=== PATIENT | male | born 1945 | race Caucasian/White ===

== ENCOUNTER 2022-06-29 10:23 | Inpatient (IN) | payer OTHER, SELFPAY ==
[2022-06-29] VITALS (42 sets, daily range): BP systolic 109–167; BP diastolic 52–88; PULSE 70–140; RESP 13–30; TEMP 36.4–36.7; O2SAT 88–100; BMI 27.3
--- NOTE | ~2022-06-29 | XR_ITS ---
XR chest 1V portable 06/30/2022 06:04 Indication: Chest tube. Pneumothorax. Procedure: AP portable chest Comparison: 06/29/2022 Findings: Right-sided chest tube stable. No definite residual pneumothorax, although the right lung a pex is obscured by overlying soft tissue. There is diffuse bilateral airspace disease, consistent wit h edema. Small pleural effusions. Status post median sternotomy for CABG. Impression: 1: Cardiomegaly with progression of pulmonary edema. 2: No pneumothorax identified. Staple position of right chest tube. Reviewed, dictated and finalized at location A. ITY ASSURANCE SPECIALIST Impression: 1: Cardiomegaly with progression of pulmonary edema. 2: No pneumothorax identified. Staple position of right chest tube.
--- NOTE | ~2022-06-29 | XR_ITS ---
XR chest 1V portable 06/30/2022 11:11 Indication: Shortness of breath. Dyspnea. Procedure: AP portable chest Comparison: 06/30/2022 and 06/29/2022 Findings: Extensive bilateral perihilar and basilar airspace consolidation. Small pleural effusions. Status post median sternotomy for CABG. No pneumothorax. Impression: 1: Arterial megaly with persistent pulmonary edema. 2: Small pleural effusions. Reviewed, dictated and finalized at location A. IOLOGY FELLOW Impression: 1: Arterial megaly with persistent pulmonary edema. 2: Small pleural effusions.
--- NOTE | ~2022-06-29 | XR_ITS ---
XR chest 1V portable 06/29/2022 10:49 Indication: Shortness of breath. Procedure: AP portable chest Comparison: No prior studies for comparison. Findings: Status post median sternotomy for CABG. Cardiomegaly. Mild interstitial edema. There is a m oderate-large right pneumothorax. No mediastinal shift. No acute osseous abnormality. Impression: 1: Moderate-large sized right pneumothorax with collapse of the right lung. 2: Cardiomegaly with mild interstitial edema. Dr. Temo Oden discussed with Dr. Sajan Romero MD at 06/29/2022 10:51 AVIATION SAFETY OFFICER. Reviewed, dictated and finalized at location A. TION SAFETY OFFICER Impression: 1: Moderate-large sized right pneumothorax with collapse of the right lung. 2: Cardiomegaly with mild interstitial edema. Dr. Temo Oden discussed with Dr. Sajan Romero MD at 06/29/2022 10:51 AVIATION SAFETY OFFICER.
--- NOTE | ~2022-06-29 | XR_ITS ---
XR chest 1V portable 06/29/2022 12:16 Indication: Right pneumothorax. Post chest tube placement. Procedure: AP portable chest Comparison: 06/29/2022 Findings: Status post median sternotomy for CABG. There is mild interstitial edema. Interval placemen t of right-sided chest tube with near complete resolution of right pneumothorax. There subcutaneous e mphysema of the right lower chest wall laterally. Impression: 1: Near-complete resolution of right pneumothorax post chest tube placement. 2: Cardiomegaly with interstitial edema. Reviewed, dictated and finalized at location A. ECTOR RUBBER STAMP DIE Impression: 1: Near-complete resolution of right pneumothorax post chest tube placement. 2: Cardiomegaly with interstitial edema.
--- NOTE | 2022-06-29 10:20 | ECG_ITS ---
Measurements Intervals [place] Rate: 144 P: RI: 0 QRS: 270 QRSD: 190 T: 0 QT: 342 QTc: 530 Interpretive Statements WIDE COMPLEX TACHYCARDIA PROBABLE SUPRAVENTRICULAR TACHYCARDIA WITH ABERRANCY POSSIBLE ATRIAL FLUTTER WITH RAPID VENTRICULAR RESPONSE RIGHT AXIS DEVIATION RIGHT BUNDLE BRANCH BLOCK ABNORMAL ECG NO PREVIOUS ECG AVAILABLE FOR COMPARISON Electronically Signed On 06-29-2022 16:54:48 SCHOOL PSYCHOLOGIST by Jarret Gold M.D.
[2022-06-29] MEDS: LORazepam INJ (*CRX) 2 MG/ML VIAL 0.25 MG IV PUSH (10:25)
[2022-06-29] MEDS: NITROGLYCERIN OINTMENT 1 INCH DOSE TRANSDERM (10:28)
[2022-06-29 10:33] LABS: Basophils Absolute Auto 0.1 K/mm3 (0.0-0.1); Basophils Percent Auto 0.7 % (0.2-1.2); Eosinophils Absolute Auto 0.2 K/mm3 (0-0.3); Eosinophils Percent Auto 1.8 % (0-4.4); Hematocrit 46.4 % (42.0-52.0); Hemoglobin 14.4 g/dL (14.0-18.0); Immature Granulocyte Absolute 0.07 K/mm3 (0.00-0.031); Immature Granulocyte Percent A 0.5 % (0-0.5); Lymphocytes Absolute Auto 4.46 K/mm3 (0.9-3.2); Lymphocytes Percent Auto 34.9 % (18.3-44.2); Mean Corpuscular Hemoglobin 28.5 pg (26-34); Mean Corpuscular Volume 91.9 fl (80-100); Mean Platelet Volume 7.9 fl (7.4-10.4); Monocytes Absolute Auto 0.7 K/mm3 (0.1-0.6); Monocytes Percent Auto 5.6 % (2.6-8.5); Neutrophils Absolute Auto 7.2 K/mm3 (1.3-6.7); Neutrophils Percent Auto 56.5 % (45.5-73.1); Platelet Count Result 372 k/mm3 (150-375); Red Blood Count 5.05 M/mm3 (4.6-6.20); Red Cell Distribution Width 14.9 % (11.5-14.5); White Blood Count 12.8 K/mm3 (4.5-10.0)
[2022-06-29 10:49] LABS: INR 1.2; Partial Thromboplastin Time 32.1 SECONDS (22.3-36.8); Prothrombin Time 14.5 Seconds (11.1-14.7)
[2022-06-29 10:50] LABS: Alanine Aminotransferase 19 U/L (6-50); Albumin Level 4.1 g/dL (3.5-5.1); Alkaline Phosphatase 142 U/L (38-126); Anion Gap 13 mmol/L (8-16); Aspartate Amino Transferase 25 U/L (17-59); Bilirubin,Total 0.8 mg/dL (0.2-1.3); Blood Urea Nitrogen 16 mg/dL (9-20); CRP 2.5 mg/dL (<1.0); Calcium 8.7 mg/dL (8.4-10.2); Carbon Dioxide 26 mmol/L (22-30); Chloride 99 mmol/L (98-107); Estimated CRCL calculation 47 ml/min; Estimated Glomerular Filt Rate > 60; Glucose 231 mg/dL (65-110); Potassium 3.9 mmol/L (3.4-5.0); Sodium 138 mmol/L (137-145)
[2022-06-29 10:59] LABS: NT Pro B Type Natriuretic Pept 4080 pg/mL (19.9-100); Troponin I < 0.012 ng/mL (0.000-0.034)
[2022-06-29 11:07] LABS: Lactic Acid Reflex 7.6 mmol/L (0.7-2.0)
--- NOTE | 2022-06-29 11:08 | ED.SOB ---
HPI - SOB/Dyspnea General Chief Complaint: Shortness of Breath/Dyspnea Stated Complaint: SOB/VTACH History of Present Illness HPI Narrative: Patient is a 76-year-old male who presents ER with shortness of breath. Sudden onset. Began with coughing. EMS felt patient was V. tach due to history of V. tach and wide-complex tachycardia. They delivered 1 shock without improvement in heart rate or patient condition. They attempted CPAP without improvement. Patient denies chest pain or pressure. He only endorses dyspnea. He does have some anterior crackles but is diminished posteriorly. No recent trauma. Patient did recently have a ERCP and percutaneous drain of his gallbladder performed 1 week ago at [facility]. Patient wears 3 L of oxygen chronically at home. He also is about to go on to hospice due to history of V. tach requiring AICD that he will not let them place. They have not called anybody yet. Partial history obtained from EMS and other apart from patient's daughter. Related Data Home Medications Medication Instructions Recorded Confirmed albuterol sulfate 90 mcg/actuation 2 puff inhalation QID PRN 06/29/22 06/29/22 aerosol inhaler Shortness Of Breath Or Wheezing amiodarone 200 mg tablet 200 mg PO DAILY 06/29/22 06/29/22 aspirin 81 mg tablet,delayed 81 mg PO DAILY 06/29/22 06/29/22 release atorvastatin 40 mg tablet 40 mg PO HS 06/29/22 06/29/22 bupropion HCl 150 mg 24 hr tablet, 300 mg PO DAILY 06/29/22 06/29/22 extended release fluticasone fur. 100 mcg-umeclid 1 ea inhalation DAILY 06/29/22 06/29/22 62.5 mcg-vilant 25 mcg inhalat.powder (Trelegy Ellipta) furosemide 40 mg tablet 40 mg PO DAILY 06/29/22 06/29/22 gentamicin 0.1 % topical cream 1 applic topical DAILY 06/29/22 06/29/22 hydroxyzine HCl 10 mg tablet 10 mg PO TID PRN Itching 06/29/22 06/29/22 insulin aspart U-100 100 unit/mL 10 unit subcut BID 06/29/22 06/29/22 subcutaneous solution metformin 1,000 mg tablet 1,000 mg PO BID 02/18/23 02/18/23 metoprolol succinate 25 mg 25 mg PO DAILY 06/29/22 06/29/22 tablet,extended release 24 hr nystatin 100,000 unit/gram topical 1 applic topical DAILY 06/29/22 06/29/22 powder roflumilast 500 mcg tablet 500 mcg PO DAILY 06/29/22 06/29/22 (Daliresp) sacubitril 24 mg-valsartan 26 mg 1 tablet PO BID 06/29/22 06/29/22 tablet (Entresto) Allergies Allergy/AdvReac Type Severity Reaction Status Date / Time amoxicillin Allergy Unconscious Verified 06/29/22 16:40 cefdinir Allergy Unknown Verified 06/29/22 16:41 ciprofloxacin Allergy Unknown Verified 06/29/22 16:42 clavulanic acid Allergy Unknown Verified 06/29/22 16:43 lisinopril Allergy Unknown Verified 06/29/22 16:39 Review of Systems Review of Systems: ROS unobtainable: Yes unobtainable due to medical condition PMFSH Past Medical History Medical History (Updated 06/29/22 @ 18:40 by Sajan Romero MD) CHF (congestive heart failure), NYHA class I Cholecystitis Cholecystostomy drain infection Chronic respiratory failure liters COPD (chronic obstructive pulmonary disease) DM2 (diabetes mellitus, type 2) Hypolipidemia SKY and COPD overlap syndrome Surgical History Surgical History (Updated 06/29/22 @ 13:59 by Kimberley Begum NP) H/O arthroscopic knee surgery H/O cataract extraction H/O foot surgery H/O hernia repair S/P CABG x 5 Family History Family History Mother Diabetes mellitus Father Skin carcinoma Brain tumor Sibling Pacemaker Social History Social History (Updated 06/29/22 @ 14:05 by Kimberley Begum NP) Social History: lives with self [place] 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 5 children . 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 Code status : dnr allows pressors Smoking status: Never smoker Second hand tobacco smoke exposure: No Substance use: never Substance use type: does not use Lack of Transport
[2022-06-29] MEDS: fentaNYL CITRATE INJ (*CRX) 100 MCG/2 ML VIAL 50 MCG IV PUSH (11:25)
--- NOTE | 2022-06-29 11:45 | PC.NURSE ---
ALESSANDRO Romero at bedside for chest tube placement.
[2022-06-29] MEDS: MIDAZOLAM HCL (*CRX) 2 MG/2 ML VIAL 1 MG IV PUSH (11:48)
[2022-06-29 12:51] LABS: Appearance Urine Clear (Clear); Bilirubin Urine 1+ (Negative); Blood Urine Negative (Negative); Color Urine Yellow (Yellow); Glucose Urine UA Negative (Negative); Ketones Urine Negative (Negative); Leukocyte Esterase Ur Negative LEU/UL (Negative); Nitrate Urine Negative (Negative); Protein Urine 2+ mg/dL (Negative); Specific Grav Ur 1.025 (1.001-1.035); Urobilinogen Urine 0.2 mg/dL (<2.0); pH Urine 5.5 (5.0-9.0)
[2022-06-29 13:02] LABS: Mucus Urine Rare /lpf; RBC Urine 0-2 /hpf (0-2); Squamous Epithelial Cell Urine Rare /hpf (Few); WBC Urine 0-3 /hpf
--- NOTE | 2022-06-29 13:08 | ECG_ITS ---
Measurements Intervals [place] Rate: 89 P: 16 [place]: 221 QRS: 260 QRSD: 201 T: 28 QT: 460 QTc: 560 Interpretive Statements SINUS RHYTHM WITH FIRST DEGREE AV BLOCK MARKED RIGHT AXIS DEVIATION [QRS AXIS > 100] RIGHT BUNDLE BRANCH BLOCK AND POSSIBLE RIGHT VENTRICULAR HYPERTROPHY CANNOT RULE OUT INFERIOR MYOCARDIAL INFARCTION, AGE INDETERMINATE ABNORMAL ECG COMPARED TO ECG 06/29/2022 10:20:11 SINUS RHYTHM NOW PRESENT FIRST DEGREE AV BLOCK NOW PRESENT MYOCARDIAL INFARCT FINDING NOW PRESENT Electronically Signed On 06-29-2022 16:57:39 FELLMONGERING MACHINE OPERATOR by Jarret Gold M.D.
[2022-06-29 13:11] LABS: Add Urine Microscopic? YES
[2022-06-29 13:12] LABS: Alveolar/Arterial O2 Gradient 388.5 mmHg; Base Excess ABG 1.4 mEq/l (+/-2.0); Fractional Inspired Oxygen 75 %; Modified Allen's Test Pass; Oxygen Content ABG 17.6 %vol (16.0-22.0); Oxygen Saturation ABG 97.8 % (95.0-100.0); Oxyhemoglobin 96.2 % THb (90.0-100.0); PO2 ABG 102.7 mmHg (80.0-100.0); PO2 FiO2 Ratio Arterial Blood 1.37 %; Site Drawn LEFT RADIAL; Total Hemoglobin 12.9 g/dL (12.0-18.0)
[2022-06-29 13:13] LABS: Device NON-INVASIVE VENT; Non-Invasive Expiratory Pressure 8 CMH2O; Non-Invasive Inspiratory Pressure 16 CMH2O; Non-Invasive Vent Rate 18 /MIN
[2022-06-29 13:31] LABS: Reflex Lactic Acid Yes or No Add Lactic
--- NOTE | 2022-06-29 13:52 | PM.IMHP ---
H&P: HPI History of Present Illness Date/Time: 06/29/22 13:52 Chief Complaint: Shortness Narrative: This is a 76-year-old male patient who had a sudden onset of shortness of breath. The patient does have a history of COpd and is not on any oxygen at home. The patient began coughing. The patient does have a history of V-tach and when the patient was coughing in ambulance it was felt that the patient went into a wide complex V-tach and was delivered 1 shock without improvement in his heart rate are his condition. A CPAP was attempted without improvement. The patient denied any fever chills or any chest pain or pressure. The patient had no recent injuries. The patient had anterior crackles and was diminished posteriorly. The patient has a history of cholecystitis and had a drain placed 1 week ago at [facility]. The patient chronically wears oxygen at 3 L per nasal cannula. The patient is too high risk to receive a pacemaker or an AICD for his V-tach. The family had been considering hospice however they want him treated today. His white count is 12.8. ABGs are within normal limits except for slightly elevated PO2 102.7. Patient's lactic was initially 7.6 and is now 3.5. His blood sugars 231. Troponin is nonreactive. C reactive protein is 2.5, and his BNP is 4080. Chest x-ray was read as moderate large sized right pneumothorax with collapse of the right lung. Cardiomegaly with mild interstitial edema. A chest tube was placed per ED provider. Initially the patient was going to be admitted to observation and was changed to inpatient status on the date of service of 06/29/2022 Review of Systems Review of Systems: see hpi All systems reviewed & are unremarkable except as noted in HPI and below Constitutional: Constitutional: Reports as per HPI and Reports no additional constitutional complaints Eyes: Eyes: Reports as per HPI and Reports no additional eye complaints ENT: Reports system reviewed and no additional complaints, except as documented and Reports Normal hearing present Cardiovascular: Cardiovascular: Reports no additional cardiovascular complaints Respiratory: Respiratory: Reports no additional respiratory complaints and Reports no additional respiratory complaints Gastrointestinal: Gastrointestinal: Reports as per HPI and Reports no additional gastrointestinal complaints Musculoskeletal: Musculoskeletal: Reports no additional musculoskeletal complaints Integumentary/Breasts: Skin/Breast: Reports system reviewed and no additional complaints, except as docu and Reports as per HPI Neurologic: Reports system reviewed and no additional complaints, except as documented, Reports as per HPI and Reports Normal hearing present Psychiatric: Psychiatric: Reports no additional psychiatric complaints and Reports as per HPI Endocrine: Endocrine: Reports no additional endocrine complaints Hematologic/Lymphatic: Hematologic/Lymphatic: Reports no additional hematologic/lymphatic complaints Allergic/Immunologic: Allergic/Immunologic: Reports no additional allergic/immunologic complaints [facility] Past Medical History Medical History (Updated 06/29/22 @ 19:27 by Kimberley Begum NP) CHF (congestive heart failure), NYHA class I Cholecystitis Cholecystostomy drain infection Chronic respiratory failure 3 liters per nasal cannula. COPD (chronic obstructive pulmonary disease) DM2 (diabetes mellitus, type 2) Hypolipidemia SKY and COPD overlap syndrome Surgical History Surgical History H/O arthroscopic knee surgery H/O cataract extraction H/O foot surgery H/O hernia repair S/P CABG x 5 Family History Family History Mother Diabetes mellitus Father Skin carcinoma Brain tumor Sibling Pacemaker Social History Social History (Updated 06/29/22 @ 19:29 by Kimberley Begum NP) Social History: He lives
[2022-06-29] MEDS: FUROSEMIDE INJ 40 MG/4 ML VIAL 20 MG IV PUSH (14:45)
[2022-06-29 14:48] LABS: Lactic Acid 3.5 mmol/L (0.7-2.0)
[2022-06-29 16:55] LABS: Glucose Point of Care 209 mg/dl (65-105)
--- NOTE | 2022-06-29 17:00 | PC.NURSE ---
This patient, Thompson Bui, was admitted to IMU Room 203-01. Patient/family oriented to hospital policies and general routines including ID bracelet, bed and alarms, visiting hours, pain management, procedures, bathroom and other care routines, personal items, smoking policy, room service/diet, and visiting hours. Information on how to activate the Rapid Response Team has been discussed. Patient/Family are encouraged to report perceived risks to care and to ask questions if they do not understand what they are told or what they should do.
[2022-06-29] MEDS: INSULIN ASPART (*BKC) 100 UNITS/ML SUB-Q (17:08)
[2022-06-29 20:31] LABS: Glucose Point of Care 119 mg/dl (65-105)
[2022-06-29] MEDS: ATORVASTATIN 40 MG TABLET PO (23:38)
[2022-06-30] VITALS (10 sets, daily range): BP systolic 136–146; BP diastolic 52–57; PULSE 68–81; RESP 16–22; TEMP 36.6; O2SAT 90–96
[2022-06-30] MEDS: ACETAMINOPHEN 325 MG TABLET 650 MG PO ×2 (00:38→05:55)
[2022-06-30 05:13] LABS: Basophils Absolute Auto 0.1 K/mm3 (0.0-0.1); Basophils Percent Auto 0.6 % (0.2-1.2); Eosinophils Absolute Auto 0.1 K/mm3 (0-0.3); Eosinophils Percent Auto 1.7 % (0-4.4); Hematocrit 36.4 % (42.0-52.0); Hemoglobin 11.6 g/dL (14.0-18.0); Immature Granulocyte Absolute 0.05 K/mm3 (0.00-0.031); Immature Granulocyte Percent A 0.6 % (0-0.5); Lymphocytes Absolute Auto 1.41 K/mm3 (0.9-3.2); Mean Corpuscular HGB Conc 31.9 g/dl (32-36); Mean Corpuscular Volume 87.9 fl (80-100); Mean Platelet Volume 7.9 fl (7.4-10.4); Monocytes Absolute Auto 0.5 K/mm3 (0.1-0.6); Monocytes Percent Auto 6.6 % (2.6-8.5); Neutrophils Absolute Auto 5.7 K/mm3 (1.3-6.7); Neutrophils Percent Auto 72.5 % (45.5-73.1); Platelet Count Result 295 k/mm3 (150-375); Red Blood Count 4.14 M/mm3 (4.6-6.20); Red Cell Distribution Width 14.6 % (11.5-14.5); White Blood Count 7.9 K/mm3 (4.5-10.0)
[2022-06-30 05:21] LABS: Alanine Aminotransferase 13 U/L (6-50); Albumin Level 3.3 g/dL (3.5-5.1); Alkaline Phosphatase 119 U/L (38-126); Anion Gap 8 mmol/L (8-16); Aspartate Amino Transferase 17 U/L (17-59); Bilirubin,Total 0.8 mg/dL (0.2-1.3); Blood Urea Nitrogen 19 mg/dL (9-20); Calcium 8.2 mg/dL (8.4-10.2); Carbon Dioxide 30 mmol/L (22-30); Chloride 102 mmol/L (98-107); Estimated CRCL calculation 43 ml/min; Estimated Glomerular Filt Rate 59; Glucose 99 mg/dL (65-110); Magnesium 1.3 mg/dL (1.6-2.3); Potassium 3.7 mmol/L (3.4-5.0); Sodium 140 mmol/L (137-145)
[2022-06-30 07:29] LABS: Glucose Point of Care 89 mg/dl (65-105)
[2022-06-30 08:29] LABS: Hemoglobin A1C 6.3 % (<5.7)
[2022-06-30] MEDS: AMIODARONE HCL 200 MG TABLET PO (08:46)
[2022-06-30] MEDS: buPROPion HCL XL (24 HR) 150 MG TABCR 300 MG PO (08:46)
[2022-06-30] MEDS: ROFLUMILAST 500 MCG TABLET PO (08:47)
[2022-06-30] MEDS: METOPROLOL SUCCINATE EXT REL 25 MG TABCR PO (08:47)
[2022-06-30] MEDS: ASPIRIN 81 MG ENTERIC TABLET PO (08:47)
[2022-06-30] MEDS: SACUBITRIL/VALSARTAN 24-26 MG TABLET 1 TAB PO (08:48)
[2022-06-30] MEDS: TOLNAFTATE 1% POWDER 45 GM BTL 1 APPLIC TOPICAL (08:49)
[2022-06-30] MEDS: EUCERIN CREAM 120 GM JAR 1 APPLIC TOPICAL (08:49)
[2022-06-30] MEDS: FUROSEMIDE 40 MG TABLET PO (08:53)
[2022-06-30] MEDS: FLUTICASONE/UMECLIDIN/VILANTER 100-62.5-25 MCG ELLIPTA 1 PUFF INHALATION (09:28)
--- NOTE | 2022-06-30 13:25 | PM.CNGS ---
Assessment and Plan Assessment and plan (1) Pneumothorax: Code(s): J93.9 - Pneumothorax, unspecified Status: Acute Assessment and Plan: I have reviewed the chest x-rays and ED physician's record. Pneumothorax appears adequately treated with chest tube placement. Patient is status has changed to comfort measures only. I do not feel comfortable removing the chest tube now as there is a high likelihood of recurrent pneumothorax. Will try to leave chest tube in place for 1 more day unless his status declines further. Will place chest tube to water seal and repeat chest x-ray in the morning. Will possibly remove chest tube tomorrow. (2) CHF exacerbation: Code(s): I50.9 - Heart failure, unspecified Status: Acute (3) SKY and COPD overlap syndrome: Code(s): G47.33 - Obstructive sleep apnea (adult) (pediatric); J44.9 - Chronic obstructive pulmonary disease, unspecified Status: Acute (4) Chronic respiratory failure: Code(s): J96.10 - Chronic respiratory failure, unspecified whether with hypoxia or hypercapnia Status: Acute History of Present Illness Consult details Consult date: 06/30/22 Reason for consult: other (pneumothorax) Requesting physician: Sajan Romero MD Narrative: This is a 76-year-old man who I am asked to see to help manage a chest tube for pneumothorax. He presented to the emergency department yesterday with shortness of breath. He was found to have a large right pneumothorax and underwent chest tube placement by the ED physician. His postprocedure chest x-ray showed re-expansion of the lung with minimal residual pneumothorax. He was admitted for further treatment. He has multiple other medical problems and his DNR status was just changed to comfort measures. He still has the chest tube in place therefore this will still need to be managed until can safely be removed. His follow-up chest x-ray shows no residual pneumothorax this morning. History is difficult to obtain due to patient's mental status. Chart is reviewed. He does have history of congestive heart failure and COPD. There is no report of trauma or fall that could have led to the pneumothorax. Review of Systems Review of Systems: ROS unobtainable: Yes unobtainable due to medical condition and unobtainable due to mental status [facility] Past Medical History Medical History (Updated 06/29/22 @ 19:27 by Kimberley Begum NP) CHF (congestive heart failure), NYHA class I Cholecystitis Cholecystostomy drain infection Chronic respiratory failure 3 liters per nasal cannula. COPD (chronic obstructive pulmonary disease) DM2 (diabetes mellitus, type 2) Hypolipidemia SKY and COPD overlap syndrome Surgical History Surgical History H/O arthroscopic knee surgery H/O cataract extraction H/O foot surgery H/O hernia repair S/P CABG x 5 Family History Family History Mother Diabetes mellitus Father Skin carcinoma Brain tumor Sibling Pacemaker Social History Social History (Updated 06/29/22 @ 19:29 by Kimberley Begum NP) Social History: He lives alone at [facility]. He has 5 children . 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 He is . Code status : DNR and will allows pressors Smoking status: Never smoker Second hand tobacco smoke exposure: No Substance use: never Substance use type: does not use Lack of Transportation: No Lack of Food: Never True Current Housing: I Have Housing Concerned About Future Housing: No Difficulty Paying Gas/Electric Bills: No Difficulty Paying for Meds: No Currently Unemployed: No Education: Decline to Answer Difficulty w/ Childcare or Family Care: No Spiritual care concerns: No Meds Home Medications and Allergies Ho
--- NOTE | 2022-06-30 13:38 | PM.IMPN ---
Progress Note: A&P Assessment and Plan (1) Pneumothorax: Code(s): J93.9 - Pneumothorax, unspecified Status: Acute Assessment and Plan: Chest tube was placed per ED provider with near complete resolution of right-sided pneumothorax. Surgery has been consulted for management of chest tube. -repeat chest x-ray in the a.m. The patient is chronically on oxygen at 3 L per nasal cannula. 06/30/2022 Interval history: 76-year-old male presented emergency department with shortness of was found to have large pneumothorax and chest tube was placed in the ER, earlier I saw the patient he was clinically stable and was able to communicate without any difficulty however later in the morning repeat response was called and patient shortness of breath was worsening patient and patient was experiencing difficulty with breathing he appeared ill, chest x-ray was ordered, pneumothorax is was stable patient had more pulmonary edema, discussed with the patient he did not want any more treatment and wanted to be comfort and wants to go to sleep, I discussed with the patient's daughter and they were other family member they all agreed with comfort measures and no more treatment, placed the patient on comfort measures will continue to monitor, patient be seen by General surgery further recommendation to follow. (2) CHF exacerbation: Code(s): I50.9 - Heart failure, unspecified Status: Acute Assessment and Plan: -continue with Entresto -continue with metoprolol (3) SKY and COPD overlap syndrome: Code(s): G47.33 - Obstructive sleep apnea (adult) (pediatric); J44.9 - Chronic obstructive pulmonary disease, unspecified Status: Acute Assessment and Plan: The patient uses a CPAP however the patient has the chest tube in at this time. Will hold off tonight. (4) Chronic respiratory failure: Code(s): J96.10 - Chronic respiratory failure, unspecified whether with hypoxia or hypercapnia Status: Acute Assessment and Plan: The patient wears oxygen at 3 L per nasal cannula. (5) DM2 (diabetes mellitus, type 2): Code(s): E11.9 - Type 2 diabetes mellitus without complications Status: Acute Assessment and Plan: Hold metformin -sliding scale insulin with hypoglycemic protocol Check A1c (6) Hypolipidemia: Code(s): E78.6 - Lipoprotein deficiency Status: Acute Assessment and Plan: Continue with Lipitor (7) COPD (chronic obstructive pulmonary disease): Code(s): J44.9 - Chronic obstructive pulmonary disease, unspecified Status: Acute Assessment and Plan: Continue with Daliresp Add-continue with albuterol Continue with oxygen at 3 L per nasal cannula. Subjective Date/time seen: 06/30/22 13:38 Shortness HPI-Narrative: This is a 76-year-old male patient who had a sudden onset of shortness of breath.? The patient does have a history of COpd and is not on any oxygen at home.? The patient began coughing.? The patient does have a history of V-tach and when the patient was coughing in ambulance it was felt that the patient went into a wide complex V-tach and was delivered 1 shock without improvement in his heart rate are his condition.? A CPAP was attempted without improvement.? The patient denied any fever chills or any chest pain or pressure.? The patient had no recent injuries.? The patient had anterior crackles and was diminished posteriorly.? The patient has a history of cholecystitis and had a drain placed 1 week ago at [facility].? The patient chronically wears oxygen at 3 L per nasal cannula.? The patient is too high risk to receive a pacemaker or an AICD for his V-tach.? The family had been considering hospice however they want him treated today.? His white count is 12.8.? ABGs are within normal limits except for slightly elevated PO2 102.7.? Patient's lactic was initially 7.6 and is now 3.5.? His blood sugars 231.? Troponin is nonreactive.? C reac
[2022-06-30] MEDS: MORPHINE SULFATE (*CRX) 2 MG/ML INJ IV PUSH ×5 (13:50→19:21)
--- NOTE | 2022-06-30 16:42 | PCCCNOTE ---
[facility] hospice notified information sent; Lulu contacted and nurse will be sent this evening
[2022-06-30] MEDS: LORazepam INJ (*CRX) 2 MG/ML VIAL IV PUSH (19:21)
--- NOTE | 2022-07-01 10:38 | PM.DS ---
DS: Admitting Diagnosis Discharge Date 06/30/22 Admitting Diagnosis shortness of breath DS: Discharge Diagnosis Discharge Diagnosis (1) Pneumothorax: Code(s): J93.9 - Pneumothorax, unspecified Status: Acute Assessment and Plan: Chest tube was placed per ED provider with near complete resolution of right-sided pneumothorax. Surgery has been consulted for management of chest tube. -repeat chest x-ray in the a.m. The patient is chronically on oxygen at 3 L per nasal cannula. 06/30/2022 Interval history: 76-year-old male presented emergency department with shortness of was found to have large pneumothorax and chest tube was placed in the ER, earlier I saw the patient he was clinically stable and was able to communicate without any difficulty however later in the morning repeat response was called and patient shortness of breath was worsening patient and patient was experiencing difficulty with breathing he appeared ill, chest x-ray was ordered, pneumothorax is was stable patient had more pulmonary edema, discussed with the patient he did not want any more treatment and wanted to be comfort and wants to go to sleep, I discussed with the patient's daughter and they were other family member they all agreed with comfort measures and no more treatment, placed the patient on comfort measures will continue to monitor, patient be seen by General surgery further recommendation to follow. (2) CHF exacerbation: Code(s): I50.9 - Heart failure, unspecified Status: Acute Assessment and Plan: -continue with Entresto -continue with metoprolol (3) SKY and COPD overlap syndrome: Code(s): G47.33 - Obstructive sleep apnea (adult) (pediatric); J44.9 - Chronic obstructive pulmonary disease, unspecified Status: Acute Assessment and Plan: The patient uses a CPAP however the patient has the chest tube in at this time. Will hold off tonight. (4) Chronic respiratory failure: Code(s): J96.10 - Chronic respiratory failure, unspecified whether with hypoxia or hypercapnia Status: Acute Assessment and Plan: The patient wears oxygen at 3 L per nasal cannula. (5) DM2 (diabetes mellitus, type 2): Code(s): E11.9 - Type 2 diabetes mellitus without complications Status: Acute Assessment and Plan: Hold metformin -sliding scale insulin with hypoglycemic protocol Check A1c (6) Hypolipidemia: Code(s): E78.6 - Lipoprotein deficiency Status: Acute Assessment and Plan: Continue with Lipitor (7) COPD (chronic obstructive pulmonary disease): Code(s): J44.9 - Chronic obstructive pulmonary disease, unspecified Status: Acute Assessment and Plan: Continue with Daliresp Add-continue with albuterol Continue with oxygen at 3 L per nasal cannula. DS: Summary Hospital Course Reason for hospitalization: Shortness of breath Narrative: This is a 76-year-old male patient who had a sudden onset of shortness of breath.? The patient does have a history of COpd and is not on any oxygen at home.? The patient began coughing.? The patient does have a history of V-tach and when the patient was coughing in ambulance it was felt that the patient went into a wide complex V-tach and was delivered 1 shock without improvement in his heart rate are his condition.? A CPAP was attempted without improvement.? The patient denied any fever chills or any chest pain or pressure.? The patient had no recent injuries.? The patient had anterior crackles and was diminished posteriorly.? The patient has a history of cholecystitis and had a drain placed 1 week ago at [facility].? The patient chronically wears oxygen at 3 L per nasal cannula.? The patient is too high risk to receive a pacemaker or an AICD for his V-tach.? The family had been considering hospice however they want him treated today.? His white count is 12.8.? ABGs are within normal limits except for slightly elevat
== END 2022-06-30 19:38 | disposition hospice, inpatient (51) | DRG 200 ==
LOC: ANHED 14:31 → ANHIMU 14:37
PROVIDERS: Nurse Practitioner; Admitting Provider Hospitalist; Emergency Provider Emergency Medicine; PCP Family Medicine; Visit Provider Family Medicine
DX: J93.9 Pneumothorax, unspecified (principal); I47.20 Ventricular tachycardia, unspecified; J96.10 Chronic respiratory failure, unspecified whether with hypoxia or hypercapnia; E78.6 Lipoprotein deficiency; E11.9 Type 2 diabetes mellitus without complications; G47.33 Obstructive sleep apnea (adult) (pediatric); I50.9 Heart failure, unspecified; J44.9 Chronic obstructive pulmonary disease, unspecified; Z95.1 Presence of aortocoronary bypass graft; Z66 Do not resuscitate; Z99.81 Dependence on supplemental oxygen; Z79.82 Long term (current) use of aspirin; Z79.84 Long term (current) use of oral hypoglycemic drugs; Z79.4 Long term (current) use of insulin; Z99.89 Dependence on other enabling machines and devices
CPT/HCPCS: 32551; 36415; 36600; 71045; 80053; 81001; 82805; 82948; 83036; 83605; 83735; 83880; 84443; 84484; 85025; 85610; 85730; 86140; 87040; 87070; 87076; 87077; 87186; 87205; 93005; 94002; 94640; 96374; 96375; 99291; A9270; G0378; J1815; J1940; J2060; J2250; J2270; J3010

== ENCOUNTER 2022-06-30 19:39 | HOS | payer OTHER, SELFPAY ==
[2022-06-30 19:56] VITALS: BMI 27.3
[2022-06-30 20:00] VITALS: O2SAT 90
--- NOTE | 2022-06-30 20:14 | PM.IMHP ---
H&P: HPI History of Present Illness Date/Time: 06/30/22 20:14 Chief Complaint: uncontrolled pain and dyspnea Narrative: 76 y/o male was admitted due to acute onset of sob. Was found to be in VT and cardioverted in route by EMS. In ED a right pneumothorax was discoverred and ED provider placed a chest tube. Patient was also in CHF. The week prior he had a cholecystostomy at [facility] in [place] due to acute cholecystitits. He has known CHF and COPD. His symptoms were not improving in spite of the chest tube and diuresis. Due to his poor quality of life and multiple comorbidities and uncontrolled dyspnea and discomfort, his family opted for intpatient hospice care. Review of Systems Review of Systems: ROS unobtainable: Yes unobtainable due to medical condition PMFSH Past Medical History Medical History CHF (congestive heart failure), NYHA class I Cholecystitis Cholecystostomy drain infection Chronic respiratory failure 3 liters per nasal cannula. COPD (chronic obstructive pulmonary disease) DM2 (diabetes mellitus, type 2) Hypolipidemia SKY and COPD overlap syndrome Surgical History Surgical History H/O arthroscopic knee surgery H/O cataract extraction H/O foot surgery H/O hernia repair S/P CABG x 5 Family History Family History Mother Diabetes mellitus Father Skin carcinoma Brain tumor Sibling Pacemaker Social History Social History Social History: He lives alone at [facility]. He has 5 children . 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 He is . Code status : DNR Smoking status: Never smoker Second hand tobacco smoke exposure: No Substance use: never Substance use type: does not use Lack of Transportation: No Lack of Food: Never True Current Housing: I Have Housing Concerned About Future Housing: No Difficulty Paying Gas/Electric Bills: No Difficulty Paying for Meds: No Currently Unemployed: No Education: Decline to Answer Difficulty w/ Childcare or Family Care: No Spiritual care concerns: No Meds Home Medications and Allergies Home Medications Medication Instructions Recorded Confirmed Type albuterol sulfate 90 mcg/actuation 2 puff inhalation QID PRN 06/29/22 06/30/22 History aerosol inhaler Shortness Of Breath Or Wheezing amiodarone 200 mg tablet 200 mg PO DAILY 06/29/22 06/30/22 History aspirin 81 mg tablet,delayed 81 mg PO DAILY 06/29/22 06/30/22 History release atorvastatin 40 mg tablet 40 mg PO HS 06/29/22 06/30/22 History bupropion HCl 150 mg 24 hr tablet, 300 mg PO DAILY 06/29/22 06/30/22 History extended release fluticasone fur. 100 mcg-umeclid 1 ea inhalation DAILY 06/29/22 06/30/22 History 62.5 mcg-vilant 25 mcg inhalat.powder (Trelegy Ellipta) furosemide 40 mg tablet 40 mg PO DAILY 06/29/22 06/30/22 History gentamicin 0.1 % topical cream 1 applic topical DAILY 06/29/22 06/30/22 History hydroxyzine HCl 10 mg tablet 10 mg PO TID PRN Itching 06/29/22 06/30/22 History insulin aspart U-100 100 unit/mL 10 unit subcut BID 06/29/22 06/30/22 History subcutaneous solution metformin 1,000 mg tablet 1,000 mg PO BID 06/29/22 06/30/22 History metoprolol succinate 25 mg 25 mg PO DAILY 06/29/22 06/30/22 History tablet,extended release 24 hr nystatin 100,000 unit/gram topical 1 applic topical DAILY 06/29/22 06/30/22 History powder roflumilast 500 mcg tablet 500 mcg PO DAILY 06/29/22 06/30/22 History (Daliresp) sacubitril 24 mg-valsartan 26 mg 1 tablet PO BID 06/29/22 06/30/22 History tablet (Entresto) Allergies Allergy/AdvReac Type Severity Reaction Status Date / Time amoxicillin Allergy Unconscious Verified 06/30/22 19
[2022-06-30 21:13] VITALS: PULSE 71
[2022-06-30] MEDS: HYDROmorphone HCL/PF (*CRX) 50 MG in SODIUM CHLORIDE 0.9% IV 95 ML IV CONT (21:13)
[2022-06-30] MEDS: ARTIFICIAL TEARS OPHTH SOLN 15 ML BOTTLE 1 DROP EACH EYE (21:23)
--- NOTE | 2022-06-30 23:14 | PC.NURSE ---
This patient, Thompson Bui, was transferred to [facility] on 06/30/22 at 2314. Personal belongings sent with patient. Report given to RALPH Pappas. Appropriate documentation sent with patient. Daughter, Dolly, updated on pt's transfer. Pt resting comfortably with the dilaudid drip running at 1 mg/hr. Chest tube site also clean, dry, and intact to water seal.
[2022-06-30 23:25] VITALS: BP 109/58; PULSE 79; RESP 18; TEMP 36.4; O2SAT 77
--- NOTE | 2022-06-30 23:35 | PC.NURSE ---
PT arrived from [facility]. Report recieved prior to transfer. Pt is stable amd appears comfortable at this time and call light in reach.
[2022-07-01 08:00] VITALS: BP 91/51; PULSE 92; RESP 22; TEMP 36.6; O2SAT 79; O2SAT 86
[2022-07-01] MEDS: GLYCOPYRROLATE INJ (*SP) 0.2 MG/ML VIAL 0.1 MG IV PUSH (08:01)
[2022-07-01] MEDS: ARTIFICIAL TEARS OPHTH SOLN 15 ML BOTTLE 1 DROP EACH EYE (08:03)
--- NOTE | 2022-07-01 09:36 | PCDIET ---
MST 2 nutrition screen. Pt is on hospice care. No nutrition recommendations at this time.
--- NOTE | 2022-07-01 16:32 | P.DN_ITS ---
Discharge Summary Date and Time Date of : 07/01/22 Time of : 13:10 Provider Pronounced By: Margareth Rojas RN Probable Cause of Probable Cause of : Respiratory failure due to pneumothorax superimposed on COPD chronic respiratory failure and acute on chronic congestive heart failure Summary Hospital Course: Patient was admitted inpatient hospice for control of dyspnea and discomfort. Medications were titrated to comfort. Mr. Bui peacefully. Additional Data Confirmation of as documented by pronouncing clinician: Pupillary Reflex, Palpable Pulses, Response to Stimuli, Heart Tones and Breath Sounds Name of Provider Notified: Dr. Leavitt Time Provider Notified: 13:15 Provider Requests Autopsy: No Family Requests Autopsy: No Technical Services Representative Notified: Yes Date [facility] Notified of : 07/01/22 Time [facility] Notified of : 13:40
== END 2022-07-01 13:10 | disposition expired | DRG 951 ==
LOC: ANHIMU 19:45 → ANH3MEDSUR 23:16
PROVIDERS: Admitting Provider Internal Medicine; PCP Family Medicine; Visit Provider Internal Medicine
DX: Z51.5 Encounter for palliative care (principal); J93.9 Pneumothorax, unspecified; J96.10 Chronic respiratory failure, unspecified whether with hypoxia or hypercapnia; E11.9 Type 2 diabetes mellitus without complications; G47.33 Obstructive sleep apnea (adult) (pediatric); I50.9 Heart failure, unspecified; J44.9 Chronic obstructive pulmonary disease, unspecified
CPT/HCPCS: A9270; J1170